=== PATIENT | female | born 1965 | race Caucasian/White ===

== ENCOUNTER 2017-03-09 14:31 | Emergency (ER) | payer BC, OTHER | END 2017-03-09 16:00 | disposition home or self-care (01) | DX: N92.1 Excessive and frequent menstruation with irregular cycle (principal) ==

== ENCOUNTER 2018-11-22 22:09 | Emergency (ER) | payer BC, OTHER ==
[2018-11-22] MEDS ORDERED: MORPHINE 2 MG/ML CARPUJECT IVP STA (22:46)
[2018-11-22] MEDS ORDERED: ONDANSETRON 4 MG/2 ML VIAL IVP STA (22:46)
--- NOTE | 2018-11-22 22:48 | ED Physician Documentation ---
History of Present Illness - Stated complaint Stated Complaint: VOMITING/STERN - Chief complaint Chief Complaint: Abd Pain - Additonal information Additional information: hx from pt healthy 53 y/o f yesterday developed NV then developed STERN which has been worsening in severity and is not severe, all over myalgias no neck stiffness photophobia no cough no diarrhea states no chance of CO exposure - everyone else in the house is fine and they have CO alarms no foreign travel she is concerned she has meningitis Review of Systems Constitutional: reports: Fever, Myalgias, Sweats Eyes: reports: Photophobia Throat: denies: Sore throat Cardiac: denies: Chest pain / pressure Respiratory: denies: Dyspnea, Cough GI: reports: Nausea, Vomiting. denies: Abdominal Pain, Diarrhea Musculoskeletal: denies: Neck pain Neurologic: reports: Headache. denies: Focal weakness, Numbness, Head injury Endocrine: denies: Easy bruising / bleeding Immunocompromised: denies: Immunocompromised PD PAST MEDICAL HISTORY - Past Surgical History Past Surgical History: No - Present Medications Home Medications: Ambulatory Orders Medication Instructions Recorded Confirmed Calcium Carbonate/Vitamin D3 1 each PO 11/22/18 [Calcium 500-Vit D3 600 Caplet] Ibuprofen [Motrin] 400 mg PO Q6H #30 tablet 11/23/18 Ondansetron Odt [Zofran] 4 mg TL Q6H PRN #10 tablet 11/23/18 - Allergies Allergies/Adverse Reactions: Allergies Allergy/AdvReac Type Severity Reaction Status Date / Time pseudoephedrine HCl * Allergy Unknown Verified 11/22/18 22:15 [From Sudafed] - Social History Does the pt smoke?: No Smoking Status: Never smoker Does the pt drink ETOH?: Yes Does the pt have substance abuse?: No PD ED PE NORMAL - Vitals Vital signs reviewed: Yes - HEENT HEENT: Atraumatic, PERRL, EOMI, Other (globes soft, no injected, pupils reactive, mildly photophobic, constricted pupils limit fundoscopic) - Neck Neck: Supple, no meningeal sign - Cardiac Cardiac: RRR - Respiratory Respiratory: No respiratory distress - Abdomen Abdomen: Soft, Non tender - Derm Derm: Normal color - Neuro Neuro: Alert and oriented X 3, project manager interior design 2-12 intact, No motor deficit, No sensory deficit, Normal speech Eye Opening: Spontaneous Motor: Obeys Commands Verbal: Oriented GCS Score: 15 Results - Vitals Vitals: Vital Signs - 24 hr 11/22/18 11/22/18 22:11 23:48 Temperature 36.5 C Heart Rate 88 88 Respiratory 18 Rate Blood Pressure 138/71 H 136/74 H O2 Saturation 98 98 Oxygen O2 Source Room air - Labs Labs: Microbiology 11/22/18 23:11 CSF Culture - Preliminary Cerebral Spinal Fluid Laboratory Tests 11/22/18 11/22/18 11/22/18 22:28 22:28 23:01 WBC 8.0 RBC 4.41 Hgb 13.3 Hct 38.7 MCV 87.6 MCH 30.1 MCHC 34.4 RDW 12.9 Plt Count 174 MPV 8.8 Neut # (Auto) 6.9 H Lymph # (Auto) 0.5 L Scott # (Auto) 0.5 Eos # (Auto) 0.0 Baso # (Auto) 0.0 Absolute Nucleated RBC 0.00 Nucleated RBC % 0.0 Sodium 138 Potassium 3.4 L Chloride 101 Carbon Dioxide 28 Anion Gap 9.0 BUN 16 Creatinine 0.6 Estimated GFR (MDRD) 104 Glucose 134 H Lactic Acid 1.3 Calcium 9.3 Urine Color Urine Clarity Urine pH Ur Specific [place] Urine Protein Urine Glucose (UA) Urine Ketones Urine Occult Blood Urine Nitrite Urine Bilirubin Urine Urobilinogen Ur Leukocyte Esterase Urine RBC Urine WBC Ur Squamous Epith Cells Urine Bacteria Ur Microscopic Review Urine Culture Comments CSF Color CSF Clarity Xanthrochromic CSF WBC CSF RBC CSF Cell Count Tube # CSF Glucose CSF Total Protein Influenza A (Rapid) Influenza B (Rapid) 11/22/18 11/22/18 11/23/18 23:11 Unknown 00:30 WBC RBC Hgb Hct MCV MCH MCHC RDW Plt Count MPV Neut # (Auto) Lymph # (Auto) Scott # (Auto) Eos # (Auto) Baso # (Auto) Absolute Nucleated RBC Nucleated RBC % Sodium Potassium Chloride Carbon Dioxide Anion Gap BUN Creatinine Estimated GFR (MDRD) Glucose Lactic Acid Calcium Urine Color YELLOW Urine Clarity CLEAR Urine pH 6.0 Ur Specific [place] 1.015 Urine Protein NEGATIVE Urine Glucose (UA) NEGATIVE Urine Ketones NEGATIVE Urine Occult Blood LARGE H Urine Nitrite NEGATIVE Urine Bilirubin NEGATIVE Urine Urobilinogen 0.2 (NORMAL) Ur Leukocyte Esterase NEGATIVE Urine RBC 6-10 H Urine WBC 0-3 Ur Squamous Epith Cells RARE Squamous Urine Bacteria None Seen Ur Microscopic Review INDICATED Urine Culture Comments NOT INDICATED CSF Color COLORLESS CSF Clarity CLEAR Xanthrochromic ABSENT CSF WBC 0 CSF RBC 1 CSF Cell Count Tube # CSF TUBE# 3 CSF Glucose 68 CSF Total Protein 27 Influenza A (Rapid) Negative Influenza B (Rapid) Negative Procedures - Lumbar Puncture Position: Laying right side Location: L3-L4 Anesthesia: Local lidocaine, None needed CSF: Clear Other: Sterile prep and drape, Patient tolerated well, No complications. No: Bleeding Departure - Departure Disposition: Home, Self Care Clinical Impression: Headache Qualifiers: Headache type: unspecified Headache chronicity pattern: acute headache Intractability: not intractable Qualified Code(s): R51 - Headache Condition: Good Instructions: ED Cephalgia Unspecified Follow-Up: Rayo Nguyen MD [Primary Care Provider] - Prescriptions: Ibuprofen [Motrin] 400 mg PO Q6H #30 tablet Ondansetron Odt [Zofran] 4 mg TL Q6H PRN #10 tablet PRN Reason: Nausea / Vomiting Comments: All of the tests came back fine. The spinal fluid was negative for an infection - also negative for any blood. The flu swabs were negative. The urine had a small amount of blood but no infection. And the blood count and chemistries were fine. I am not saying nothing is wrong. With the associated nausea vomiting and body aches and low grade fever, this could be a viral syndrome of some sort. But given the reassuring work up, I think it is safe to let you go home for now with medications to ease the symptoms. Recommend motrin for mild to moderate pain and only take the percocet for severe pain. Zofran for vomiting Please follow up with your PMD for a recheck in the next 48 hr. Return to the ER if worse in any way. And please double check that all your carbon monoxide alarms are working !! Forms: Activity restrictions Discharge Date/Time: 11/23/18 02:28
[2018-11-22 22:51] LABS: BASOPHILS % (AUTO) 0.3 %; EOSINOPHILS % (AUTO) 0.2 %; HGB - HEMOGLOBIN 13.3 g/dL (12.0-16.0); LYMPHOCYTES # (AUTO) 0.5 10^3/uL (1.5-3.5); LYMPHOCYTES % (AUTO) 6.2 %; MEAN CORPUSCULAR HEMOGLOBIN 30.1 pg (27.0-31.0); MEAN CORPUSCULAR HGB CONC 34.4 g/dL (32.0-36.0); MEAN CORPUSCULAR VOLUME 87.6 fL (81.0-99.0); MEAN PLATELET VOLUME 8.8 fL (7.9-10.8); MONOCYTES # (AUTO) 0.5 10^3/uL (0.0-1.0); MONOCYTES % (AUTO) 6.4 %; NEUTROPHILS # (AUTO) 6.9 10^3/uL (1.5-6.6); NEUTROPHILS % (AUTO) 86.9 %; PLT - PLATELET COUNT 174 10^3/uL (130-450); RED BLOOD COUNT 4.41 10^6/uL (4.20-5.40); RED CELL DISTRIBUTION WIDTH 12.9 % (12.0-15.0)
[2018-11-22] MEDS ORDERED: LIDOCAINE 1% 2 ML VIAL SUBQ STA (22:57)
[2018-11-22 22:59] LABS: CALCIUM 9.3 mg/dL (8.5-10.3); CREATININE 0.6 mg/dL (0.4-1.0)
[2018-11-22] MEDS ORDERED: LIDOCAINE 2% 10 ML MDV ONE (23:02)
[2018-11-22] MEDS ORDERED: LIDOCAINE 2% 10 ML MDV SUBQ STA (23:04)
[2018-11-22] MEDS ORDERED: SODIUM CHLORIDE 0.9% 1,000 ML IV ONE (23:32)
[2018-11-22 23:37] LABS: CLARITY,CSF CLEAR (CLEAR); COLOR,CSF COLORLESS (COLORLESS); CSF TUBE # CSF TUBE# 3; CSF XANTHOCHROMIA ABSENT (ABSENT); RED BLOOD CELL,CSF 1 /mm^3 (0-1); WHITE BLOOD CELL,CSF 0 /mm^3 (0-5)
[2018-11-22 23:39] LABS: CSF - GLUCOSE 68 mg/dL (45-70)
[2018-11-22 23:49] VITALS: BP 136/74
[2018-11-23 00:38] LABS: BILIRUBIN,URINE NEGATIVE (NEGATIVE); GLUCOSE, URINE (UA) NEGATIVE (NEGATIVE); KETONES,URINE (UA) NEGATIVE (NEGATIVE); LEUKOCYTE ESTERASE, URINE NEGATIVE (NEGATIVE); NITRITE,URINE NEGATIVE (NEGATIVE); OCCULT BLOOD,URINE LARGE (NEGATIVE); PROTEIN,URINE NEGATIVE (NEGATIVE); UROBILINOGEN,URINE 0.2 (NORMAL) E.U./dL (NORMAL)
[2018-11-23 00:39] LABS: CLARITY,URINE CLEAR (CLEAR)
[2018-11-23 00:46] LABS: BACTERIA,URINE None Seen /HPF (None Seen); SQUAMOUS EPITHELIAL CELL,UR RARE Squamous (<= Few)
[2018-11-23] MEDS ORDERED: IBUPROFEN 400 MG TABLET PO STA (01:57)
[2018-11-23] MEDS ORDERED: oxyCODONE 5 MG TABLET PO STA (01:57)
[2018-11-23] MEDS ORDERED: oxyCODONE/ACET 5/325 Prepack 4 PO PRN (01:59)
== END 2018-11-23 02:28 | disposition home or self-care (01) ==
LOC: ED 22:09
DX: R51 Headache (principal)
CPT/HCPCS: 36415; 62270; 80048; 81001; 82945; 83605; 84157; 85025; 87040; 87070; 87205; 87275; 87276; 89051; 96361; 96374; 99283; A9270; 81003; 87086

== ENCOUNTER 2019-08-24 16:35 | Outpatient (CLI) | payer BC ==
--- NOTE | 2019-08-25 10:06 | Mammography Report ---
Reason: SCREENING MAMMO Procedure Date: 08/24/2019 Accession Number: [id number] / [id number] Procedure: [facility] - Screening Mammo w/Soren CPT Code: FULL RESULT: EXAM: Screening Mammo w/Soren DATE: 08/24/2019 4:57 PM CLINICAL HISTORY: Screening TECHNIQUE: (B) - Bilateral CC and MLO views were obtained. COMPARISON: 07/15/2013, 04/19/2010 PARENCHYMAL PATTERN: (A) - The breasts demonstrate scattered fibroglandular densities bilaterally. FINDINGS: There are no suspicious masses, calcifications, or areas of distortion. IMPRESSION: Negative examination. BI-RADS category 1. RECOMMENDATION: (ANNUAL) - Recommend routine annual screening mammography. BI-RADS CATEGORY: (1) - Negative. STANDARD QUALIFYING STATEMENTS: 1. This examination was not reviewed with the aid of Computer-Aided Detection (CAD). 2. A negative or benign imaging report should not preclude biopsy if clinically suspicious findings are present. 3. Dense breasts may obscure an underlying neoplasm. 4. This examination was reviewed with the aid of 3D breast imaging (tomosynthesis).
== END 2019-08-24 16:36 | disposition home or self-care (01) ==
LOC: DI 16:35
PROVIDERS: ATTEND Family Medicine
DX: Z12.31 Encounter for screening mammogram for malignant neoplasm of breast (principal)
CPT/HCPCS: 77063; 77067

== ENCOUNTER 2019-10-16 11:14 | Outpatient (CLI) | payer BC ==
--- NOTE | 2019-10-18 01:40 | Ultrasound Report ---
Reason: HX OF OVARIAN CYST, PELVIC PAIN Procedure Date: 10/16/2019 Accession Number: [id number] / [id number] Procedure: US - Pelvic w/Transvaginal CPT Code: Final Report FULL RESULT: EXAM: PELVIC ULTRASOUND TRANSABDOMINAL AND TRANSVAGINAL EXAM DATE: 10/16/2019 12:00 PM. CLINICAL HISTORY: HX OF OVARIAN CYST, PELVIC PAIN. COMPARISON: None. TECHNIQUE: Realtime transabdominal pelvic scan performed to identify the uterus and adnexa and as an overview of other pelvic structures, followed by transvaginal scan to provide greater detail of the uterus and adnexa, with static image documentation. FINDINGS: Uterus: 7.0 x 3.6 x 4.6 cm, volume 59.9 cc. ANTEVERTED position. The uterus is heterogeneous in appearance with thickening of the posterior uterine wall. Masses: None. Endometrium: 4 mm. The endometrium is within normal limits although the posterior border was difficult to define. Cervix: A nabothian cyst is seen. Right Ovary: 1.3 x 1.5 x 1.2 cm, volume 1.3 cc. Normal echotexture and blood flow. Left Ovary: 1.9 x 1.9 x 2.0 cm, volume 3.7 cc. Normal blood flow. A cyst with internal septations and debris measuring 1.8 x 1.7 x 1.9 cm is seen. There is no internal vascularity or solid component. Free Fluid: None. Other: None. IMPRESSION: Left ovarian cyst with internal septations and debris without internal vascularity. Short-term follow-up ultrasound is recommended in 2-3 months. RADIA
== END 2019-10-16 11:15 | disposition home or self-care (01) ==
LOC: DI 11:14
PROVIDERS: ATTEND Obstetrics & Gynecology
DX: N83.202 Unspecified ovarian cyst, left side (principal); R10.2 Pelvic and perineal pain; Z87.42 Personal history of other diseases of the female genital tract
CPT/HCPCS: 76830; 76856

== ENCOUNTER 2021-01-02 08:00 | Outpatient (CLI) | payer OTHER | END 2021-01-02 23:59 | disposition home or self-care (01) | LOC: LAB.R 08:00 | PROVIDERS: ATTEND Nurse Practitioner | DX: R39.9 Unspecified symptoms and signs involving the genitourinary system (principal) | CPT/HCPCS: 87086; 87181 ==

== ENCOUNTER 2021-06-27 08:00 | Outpatient (CLI) | payer OTHER ==
[2021-06-27 12:59] LABS: HCT - HEMATOCRIT 40.1 % (37.0-47.0); HGB - HEMOGLOBIN 13.5 g/dL (12.0-16.0); MEAN CORPUSCULAR HGB CONC 33.7 g/dL (32.0-36.0); MEAN CORPUSCULAR VOLUME 89.1 fL (81.0-99.0); MEAN PLATELET VOLUME 11.2 fL (7.9-10.8); RED BLOOD COUNT 4.5 10^6/uL (4.20-5.40); RED CELL DISTRIBUTION WIDTH 12.6 % (12.0-15.0); WHITE BLOOD COUNT 3.9 x10^3/uL (4.8-10.8)
[2021-06-27 13:25] LABS: ESTIMATED AVERAGE GLUCOSE 105 mg/dL (70-100); HEMOGLOBIN A1c% 5.3 % (4.27-6.07)
[2021-06-27 13:34] LABS: THYROID STIMULATING HORMONE 1.28 uIU/mL (0.34-5.60)
[2021-06-27 13:49] LABS: ALBUMIN 4.5 g/dL (3.2-5.5); ALKALINE PHOSPHATASE 67 IU/L (42-121); ALT ALANINE AMINOTRANSFERASE 22 IU/L (10-60); AST ASPARTATE AMINOTRANSFERASE 20 IU/L (10-42); BUN - BLOOD UREA NITROGEN 21 mg/dL (6-20); CALCIUM 9.4 mg/dL (8.5-10.3); CARBON DIOXIDE - CO2 29 mmol/L (21-32); CHLORIDE 100 mmol/L (101-111); CHOL/HDL RATIO 3.8 (<4.4); CHOLESTEROL 230 mg/dL; CREATININE 0.7 mg/dL (0.4-1.0); GFR - MDRD 87 (>89); GLUCOSE 96 mg/dL (70-100); HDL CHOLESTEROL 60 mg/dL; LDL CHOLESTEROL,CALCULATED 160 mg/dL; LDL/HDL RATIO 2.7 (<4.4); POTASSIUM 4.2 mmol/L (3.5-5.0); SODIUM 137 mmol/L (135-145); TOTAL PROTEIN 6.7 g/dL (6.7-8.2); TRIGLYCERIDES 49 mg/dL; VLDL CHOLESTEROL 10 mg/dL
== END 2021-06-27 23:59 ==
LOC: LAB.WCP 08:00
PROVIDERS: ATTEND Obstetrics & Gynecology
DX: Z00.00 Encounter for general adult medical examination without abnormal findings (principal); Z13.1 Encounter for screening for diabetes mellitus; Z13.220 Encounter for screening for lipoid disorders; Z13.21 Encounter for screening for nutritional disorder; Z13.29 Encounter for screening for other suspected endocrine disorder; N05.9 Unspecified nephritic syndrome with unspecified morphologic changes
CPT/HCPCS: 36415; 80053; 80061; 82306; 83036; 83721; 84443; 85027

== ENCOUNTER 2021-09-16 16:31 | Outpatient (CLI) | payer OTHER ==
--- NOTE | 2021-09-16 17:49 | Ultrasound Report ---
PROCEDURE: Pelvic w/Transvaginal INDICATIONS: POSTMENOPAUSAL BLEEDING TECHNIQUE: Real-time scanning was performed of the pelvic organs, with image documentation. Additional endovagi nal scanning was necessary due to incomplete visualization of the adnexal and endometrial structures by transabdominal scanning. COMPARISON: None. FINDINGS: No pathologic free abdominal or pelvic fluid. Uterus: The uterus measures 6.5 x 3.4 x 4.9 cm. The uterus is anteverted. Uterine echotexture is hete rogenous. The endometrium is ill-defined but is within normal limits measuring 3 mm. No uterine fibro ids are identified. Ovaries: The right ovary measures 2.0 x 0.8 x 1.2 cm. The right ovary has no solid or cystic masses. The left ovary measures 2.0 x 1.6 x 1.7 cm. The left ovary has a 1.3 x 1.3 x 1.2 cm hemorrhagic cyst . IMPRESSION: 1. No endometrial thickening. 2. 1.3 x 1.3 x 1.2 cm left ovarian cyst, likely a hemorrhagic cyst. Reviewed by: Dav Garcia on 09/16/2021 5:48 PM PDT Approved by: Dav Garcia on 09/16/2021 5:48 PM PDT Station ID: [id number]
== END 2021-09-16 16:32 | disposition home or self-care (01) ==
LOC: DI 16:31
PROVIDERS: ATTEND Obstetrics & Gynecology
DX: N83.201 Unspecified ovarian cyst, right side (principal)

== ENCOUNTER 2024-07-02 07:47 | Outpatient (CLI) | payer OTHER ==
[2024-07-02 12:33] LABS: BUN - BLOOD UREA NITROGEN 24 mg/dL (6-20); CALCIUM 9.7 mg/dL (8.5-10.3); CARBON DIOXIDE - CO2 30 mmol/L (21-32); CHLORIDE 105 mmol/L (101-111); CHOLESTEROL 214 mg/dL; CREATININE 0.7 mg/dL (0.6-1.3); GFR - MDRD 86 (>89); GLUCOSE 102 mg/dL (74-104); HDL CHOLESTEROL 54 mg/dL; LDL CHOLESTEROL,CALCULATED 138 mg/dL; LDL/HDL RATIO 2.6 (<4.4); SODIUM 140 mmol/L (135-145); TRIGLYCERIDES 108 mg/dL; VLDL CHOLESTEROL 22 mg/dL
== END 2024-07-02 07:48 | disposition home or self-care (01) ==
LOC: LAB.N 07:47
PROVIDERS: ATTEND Physician Assistant
DX: E78.2 Mixed hyperlipidemia (principal); R31.1 Benign essential microscopic hematuria
CPT/HCPCS: 36415; 80048; 80061; 83721